=== PATIENT | female | born 1960 | race Caucasian/White ===

== ENCOUNTER → 2017-12-28 12:19 | Outpatient (CLI) | payer OTHER | END | disposition home or self-care (01) | LOC: LAB 12:19 | DX: K92.1 Melena (principal); K92.2 Gastrointestinal hemorrhage, unspecified; K51.00 Ulcerative (chronic) pancolitis without complications ==

== ENCOUNTER 2017-12-29 06:35 | Day surgery (SDC) | payer OTHER | END 2017-12-29 13:45 | disposition home or self-care (01) | LOC: AMB-ENDOS 06:35 | DX: K63.5 Polyp of colon (principal); K64.1 Second degree hemorrhoids ==

== ENCOUNTER → 2019-04-02 | Outpatient (CLI) | payer OTHER | END | disposition home or self-care (01) | LOC: MAMO-SONO 09:42 | DX: Z12.31 Encounter for screening mammogram for malignant neoplasm of breast (principal); N60.11 Diffuse cystic mastopathy of right breast; N60.12 Diffuse cystic mastopathy of left breast ==

== ENCOUNTER → 2019-05-29 16:13 | Outpatient (CLI) | payer OTHER | END | disposition home or self-care (01) | LOC: LAB 16:13 → RAD 16:13 | DX: M25.561 Pain in right knee (principal); M25.562 Pain in left knee ==

== ENCOUNTER 2019-06-07 06:30 | Day surgery (SDC) | payer OTHER | END 2019-06-07 11:00 | disposition home or self-care (01) | LOC: AMB-ENDOS 06:30 | DX: D12.2 Benign neoplasm of ascending colon (principal); D12.3 Benign neoplasm of transverse colon; K64.0 First degree hemorrhoids ==

== ENCOUNTER → 2020-02-06 | Outpatient (CLI) | payer OTHER | END | disposition home or self-care (01) | LOC: TOM 02-04 14:15 | PROVIDERS: ATTEND Family Medicine | DX: R59.0 Localized enlarged lymph nodes (principal) ==

== ENCOUNTER 2020-02-14 11:34 | Outpatient (CLI) | payer OTHER | END 2020-02-14 11:40 | disposition home or self-care (01) | LOC: LAB 11:34 | PROVIDERS: ATTEND Radiology Diagnostic Radiology | DX: N20.0 Calculus of kidney (principal) ==

== ENCOUNTER 2020-02-26 09:50 | Outpatient (CLI) | payer OTHER | END 2020-02-26 09:59 | disposition home or self-care (01) | LOC: LAB 09:50 | PROVIDERS: ATTEND Radiology Diagnostic Radiology | DX: N20.0 Calculus of kidney (principal) ==

== ENCOUNTER → 2020-02-26 | Outpatient (CLI) | payer OTHER | END | disposition home or self-care (01) | LOC: MRI 09:15 | PROVIDERS: ATTEND Otolaryngology | DX: R22.1 Localized swelling, mass and lump, neck (principal) | CPT/HCPCS: 70543 ==

== ENCOUNTER → 2020-04-16 | Outpatient (CLI) | payer OTHER | END | disposition home or self-care (01) | LOC: RAD 14:34 | DX: R07.89 Other chest pain (principal) ==

== ENCOUNTER → 2020-12-02 13:26 | Outpatient (CLI) | payer OTHER | END | disposition home or self-care (01) | LOC: RAD 13:26 | DX: M51.37 Other intervertebral disc degeneration, lumbosacral region (principal); M54.5 Low back pain ==

== ENCOUNTER 2021-07-20 13:35 | Outpatient (CLI) | payer OTHER | END 2021-07-20 14:00 | disposition home or self-care (01) | LOC: RAD 13:35 | PROVIDERS: ATTEND Family Medicine | DX: J18.9 Pneumonia, unspecified organism (principal) ==

== ENCOUNTER 2022-12-07 06:01 | Day surgery (SDC) | payer OTHER | END 2022-12-07 11:30 | disposition home or self-care (01) | LOC: AMB-ENDOS 06:01 | PROVIDERS: ATTEND Colon & Rectal Surgery | DX: D12.3 Benign neoplasm of transverse colon (principal); Z86.010 Personal history of colon polyps; K64.8 Other hemorrhoids; Z20.822 Contact with and (suspected) exposure to COVID-19 ==

== ENCOUNTER 2022-12-24 18:34 | Emergency (ER) | payer OTHER ==
[~2022-12-24] VITALS: Ht 167.6 cm; Wt 65.8 kg
[2022-12-24] MEDS ORDERED: JARDIANCE25 MG (19:03)
[2022-12-24] MEDS ORDERED: ELIQUIS2.5 MG (19:03)
[2022-12-24] MEDS ORDERED: KAPSPARGO SPRIN50 MG (19:03)
[2022-12-24] MEDS ORDERED: METFORMIN HCL500 M3 (19:03)
== END 2022-12-24 21:02 | disposition home or self-care (01) ==
LOC: ER 18:34
PROVIDERS: General Practice
DX: R11.10 Vomiting, unspecified (principal); E11.9 Type 2 diabetes mellitus without complications; Z79.84 Long term (current) use of oral hypoglycemic drugs; Z91.013 Allergy to seafood